=== PATIENT | female | born 2000 | race Caucasian/White ===

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

== ENCOUNTER 2020-05-10 09:25 | Outpatient (CLI) | payer OTHER ==
[~2020-05-10 09:25] MED LIST: FLONASE16 GM NASAL; MUCINEX DM ER1 EAC1 PO
== END 2020-05-10 09:34 | disposition home or self-care (01) ==
LOC: LAB 09:25
PROVIDERS: ATTEND Specialist
DX: D64.89 Other specified anemias (principal)

== ENCOUNTER 2020-07-11 20:19 | Emergency (ER) | payer OTHER ==
[~2020-07-11] VITALS: Ht 157.5 cm; Wt 81.6 kg
[2020-07-11] MEDS ORDERED: MAXFE (20:26)
== END 2020-07-12 00:12 | disposition home or self-care (01) ==
LOC: ER 20:19
DX: L03.115 Cellulitis of right lower limb (principal)

== ENCOUNTER 2020-12-03 10:38 | Outpatient (CLI) | payer OTHER ==
[~2020-12-03 10:38] MED LIST changes: +MAXFE
== END 2020-12-03 10:42 | disposition home or self-care (01) ==
LOC: LAB 10:38
PROVIDERS: ATTEND General Practice
DX: E03.8 Other specified hypothyroidism (principal)

== ENCOUNTER → 2021-05-16 09:52 | Outpatient (CLI) | payer OTHER | END | disposition home or self-care (01) | LOC: LAB 09:52 | PROVIDERS: ATTEND Internal Medicine Rheumatology | DX: M06.8A Other specified rheumatoid arthritis, other specified site (principal); M06.9 Rheumatoid arthritis, unspecified; M32.19 Other organ or system involvement in systemic lupus erythematosus; D68.61 Antiphospholipid syndrome; M35.00 Sjogren syndrome, unspecified ==

== ENCOUNTER 2021-08-16 10:54 | Outpatient (CLI) | payer OTHER | END 2021-08-16 11:45 | disposition home or self-care (01) | LOC: LAB 10:54 | PROVIDERS: ATTEND Obstetrics & Gynecology | DX: D64.89 Other specified anemias (principal); Z12.11 Encounter for screening for malignant neoplasm of colon; E03.8 Other specified hypothyroidism; N95.1 Menopausal and female climacteric states; I10 Essential (primary) hypertension; C51.9 Malignant neoplasm of vulva, unspecified; A64 Unspecified sexually transmitted disease; N39.0 Urinary tract infection, site not specified; R97.8 Other abnormal tumor markers; R79.89 Other specified abnormal findings of blood chemistry; E55.9 Vitamin D deficiency, unspecified; A60.9 Anogenital herpesviral infection, unspecified; M35.00 Sjogren syndrome, unspecified; D89.1 Cryoglobulinemia ==

== ENCOUNTER 2021-11-16 08:39 | Outpatient (CLI) | payer OTHER | END 2021-11-16 08:46 | disposition home or self-care (01) | LOC: LAB 08:39 | PROVIDERS: ATTEND Internal Medicine Rheumatology | DX: M32.19 Other organ or system involvement in systemic lupus erythematosus (principal) ==

== ENCOUNTER 2023-08-24 13:11 | Emergency (ER) | payer OTHER ==
[~2023-08-24] VITALS: Ht 157.5 cm; Wt 86.2 kg
[2023-08-24] MEDS ORDERED: SYNTHROID50 MCG PO (14:12)
[2023-08-24 15:45] LABS: HEMATOCRIT 35.8 % (36.0-45.00); HEMOGLOBIN 11.6 g/dL (12.0-15.00); MEAN CELL VOLUME 73.5 fL (80.00-100.00); MEAN CORPUSCULAR HEMOGLOBIN 23.9 pg (27.00-32.0); MEAN CORPUSCULAR HGB CONC 32.5 g/dl (32.0-36.0); PLATELET COUNT 342 K/uL (150-450); RED BLOOD COUNT 4.87 M/uL (4.00-6.00); RED CELL DISTRIBUTION WIDTH 15.2 % (11.5-14.5)
[2023-08-24 16:07] LABS: ALBUMIN 3.7 gm/dL (3.4-5.0); ALKALINE PHOSPHATASE 74 U/L (50-136); ALT/SGPT 38 U/L (12-78); AMYLASE 55 U/L (25-115); ANION GAP 9 (10.0-20.0); AST/SGOT 19 U/L (15-37); BILIRUBIN TOTAL 0.52 mg/dL (0.3-1.2); BLOOD UREA NITROGEN 16 mg/dL (7-18); BUN CREA RATIO 24 (7.0-25.0); CALCIUM 9.1 mg/dL (8.5-10.1); CARBON DIOXIDE 27 mEq/L (21-32); CHLORIDE 108 mmol/L (98-107); CREATININE SERUM 0.66 mg/dL (0.55-1.02); GFR 110.98; GLOBULINA 4.7 G/DL (2.4-3.5); GLUCOSE FASTING 98 mg/dL (65-100); LIPASE 33 U/L (13-75); OSMOLALITY SERUM 281 MOSM/KG (275-295); POTASSIUM 3.57 mEq/L (3.5-5.1); SODIUM 140 mmol/L (136-145); TOTAL PROTEIN 8.4 gm/dL (6.4-8.2)
[2023-08-24 16:59] LABS: HCG QUANTITATIVE < 1 mUI/mL (1-3)
== END 2023-08-24 17:17 | disposition home or self-care (01) ==
LOC: ER 13:12
PROVIDERS: General Practice
DX: K52.9 Noninfective gastroenteritis and colitis, unspecified (principal)

== ENCOUNTER 2023-11-25 18:09 | Emergency (ER) | payer OTHER ==
[~2023-11-25] VITALS: Ht 157.5 cm; Wt 89.8 kg
[~2023-11-25 18:09] MED LIST changes: +SYNTHROID50 MCG PO
[2023-11-25] MEDS ORDERED: SYNTHROID125 MCG PO (18:40)
[2023-11-25] MEDS ORDERED: PRENA1 TRUE CO1 EACH PO (18:41)
[2023-11-25 21:35] LABS: HEMATOCRIT 33.9 % (36.0-45.00); HEMOGLOBIN 11.1 g/dL (12.0-15.00); MEAN CORPUSCULAR HEMOGLOBIN 25.2 pg (27.00-32.0); MEAN CORPUSCULAR HGB CONC 32.7 g/dl (32.0-36.0); PLATELET COUNT 334 K/uL (150-450)
[2023-11-25 21:42] LABS: RED CELL DISTRIBUTION WIDTH 19.4 % (11.5-14.5)
[2023-11-25 21:58] LABS: PH,URINE 5.5 (5.0-8.0); URINE APPEARANCE Clear; URINE BILIRRUBIN Negative (NEGATIVE); URINE BLOOD Negative; URINE COLOR Yellow; URINE GLUCOSE Negative (NEGATIVE); URINE LEUKOCYTE Negative; URINE NITRATE Negative; URINE PROTEIN Negative (NEGATIVE)
[2023-11-25 22:01] LABS: URINE EPITHELIAL CELLS 22.9 uL (0.0-38.8); URINE RBC 6.3 uL (0.0-20.8); URINE WBC 4.3 uL (0.0-23.2)
[2023-11-25 22:08] LABS: CALCIUM 9.1 mg/dL (8.5-10.1); CREATININE SERUM 0.59 mg/dL (0.55-1.02); GFR 126.31; POTASSIUM 3.48 mEq/L (3.5-5.1)
== END 2023-11-26 00:20 | disposition home or self-care (01) ==
LOC: ER 18:10
PROVIDERS: General Practice
DX: M54.9 Dorsalgia, unspecified (principal); Z3A.10 10 weeks gestation of pregnancy

== ENCOUNTER 2023-12-16 13:14 | Outpatient (CLI) | payer OTHER ==
[~2023-12-16 13:14] MED LIST changes: +PRENA1 TRUE CO1 EACH PO; +SYNTHROID125 MCG PO
== END 2023-12-16 13:16 | disposition home or self-care (01) ==
LOC: PRENATAL 13:14
PROVIDERS: ATTEND Obstetrics & Gynecology Maternal & Fetal Medicine
DX: O36.80X0 Pregnancy with inconclusive fetal viability, not applicable or unspecified (principal); Z36.82 Encounter for antenatal screening for nuchal translucency; O99.280 Endocrine, nutritional and metabolic diseases complicating pregnancy, unspecified trimester; Z3A.13 13 weeks gestation of pregnancy

== ENCOUNTER 2024-01-12 18:23 | Emergency (ER) | payer OTHER ==
[~2024-01-12] VITALS: Ht 157.5 cm; Wt 89.8 kg
[2024-01-12] MEDS ORDERED: ONDANSETRON HCL 2 MG/ML VIAL IV STA (20:04)
[2024-01-12] MEDS ORDERED: 0.9 % SODIUM CHLORIDE 1,000 ML IV STA (20:04)
[2024-01-12] MEDS ORDERED: ACETAMINOPHEN 500 MG GEL..CAP PO ONE (20:15)
[2024-01-12 20:37] LABS: HEMATOCRIT 36.9 % (36.0-45.00); HEMOGLOBIN 12.4 g/dL (12.0-15.00); MEAN CELL VOLUME 81.2 fL (80.00-100.00); MEAN CORPUSCULAR HEMOGLOBIN 27.3 pg (27.00-32.0); MEAN CORPUSCULAR HGB CONC 33.6 g/dl (32.0-36.0); PLATELET COUNT 304 K/uL (150-450); RED BLOOD COUNT 4.55 M/uL (4.00-6.00); RED CELL DISTRIBUTION WIDTH 18.3 % (11.5-14.5)
[2024-01-12 20:52] LABS: PH,URINE 5.5 (5.0-8.0); URINE APPEARANCE Clear; URINE BACTERIA 5878.7 uL (0.0-1933); URINE BILIRRUBIN Negative (NEGATIVE); URINE BLOOD Negative; URINE COLOR Yellow; URINE EPITHELIAL CELLS 25.3 uL (0.0-38.8); URINE GLUCOSE Negative (NEGATIVE); URINE LEUKOCYTE Small; URINE NITRATE Negative; URINE PROTEIN Negative (NEGATIVE); URINE RBC 15.6 uL (0.0-20.8); URINE UROBILINOGEN 0.2 E.U./dl; URINE WBC 83.9 uL (0.0-23.2)
[2024-01-12 21:19] LABS: CALCIUM 9.5 mg/dL (8.5-10.1); CREATININE SERUM 0.43 mg/dL (0.55-1.02); GFR 181.96; POTASSIUM 3.67 mEq/L (3.5-5.1)
== END 2024-01-12 23:25 | disposition home or self-care (01) ==
LOC: ER 18:23
PROVIDERS: Emergency Medicine
DX: O23.42 Unspecified infection of urinary tract in pregnancy, second trimester (principal); N39.0 Urinary tract infection, site not specified; Z3A.17 17 weeks gestation of pregnancy; E03.9 Hypothyroidism, unspecified

== ENCOUNTER 2024-01-14 16:48 | Inpatient (IN) | payer OTHER ==
[~2024-01-14] VITALS: Ht 157.5 cm; Wt 89.8 kg
[2024-01-14] MEDS ORDERED: CHILDREN'S ASPI81 MG PO (18:15)
[2024-01-14] MEDS ORDERED: RINGERS SOLUTION,LACTATED 1,000 ML IV SCH (18:30)
[2024-01-14 18:37] LABS: HEMOGLOBIN 12.1 g/dL (12.0-15.00); MEAN CELL VOLUME 81.1 fL (80.00-100.00); MEAN CORPUSCULAR HEMOGLOBIN 27.3 pg (27.00-32.0); MEAN CORPUSCULAR HGB CONC 33.7 g/dl (32.0-36.0); PLATELET COUNT 304 K/uL (150-450); RED BLOOD COUNT 4.43 M/uL (4.00-6.00); RED CELL DISTRIBUTION WIDTH 17.5 % (11.5-14.5)
[2024-01-14 19:13] LABS: INR 0.98; PARTIAL THROMBOPLASTIN TIME 28.4 SECONDS (22.0-34.0); PROTHROMBIN TIME 10.3 SECONDS (9.0-11.5)
[2024-01-14 19:21] LABS: ALBUMIN 3.6 gm/dL (3.4-5.0); BILIRUBIN TOTAL 0.32 mg/dL (0.3-1.2); CALCIUM 9.9 mg/dL (8.5-10.1); CREATININE SERUM 0.5 mg/dL (0.55-1.02); GFR 152.89; GLOBULINA 4.5 G/DL (2.4-3.5); POTASSIUM 3.76 mEq/L (3.5-5.1); TOTAL PROTEIN 8.1 gm/dL (6.4-8.2); TSH 1.68 uIU/mL (0.358-3.74)
[2024-01-14] MEDS ORDERED: FAMOTIDINE/PF 20 MG/2 ML VIAL IV SCH (20:45)
[2024-01-14] MEDS ORDERED: METOCLOPRAMIDE HCL 5 MG/ML VIAL IV ONE (20:45)
[2024-01-14] MEDS ORDERED: DIPHENHYDRAMINE HCL 50 MG/ML VIAL 1ML IV ONE (20:45)
[2024-01-14] MEDS ORDERED: ONDANSETRON HCL 2 MG/ML VIAL IV SCH (21:00)
[2024-01-15] MEDS ORDERED: ACETAMINOPHEN 500 MG GEL..CAP PO PRN (17:30)
[2024-01-16 11:32] LABS: URINE PROT QUANT 24HR 11.6 MG/DL
[2024-01-16 11:45] LABS: URINE PROT QUANT 24 HR 205.9 MG/24HR (42-225)
[2024-01-16 13:16] LABS: ALBUMIN 3.3 gm/dL (3.4-5.0); BILIRUBIN TOTAL 0.31 mg/dL (0.3-1.2); CALCIUM 9.2 mg/dL (8.5-10.1); CREATININE SERUM 0.47 mg/dL (0.55-1.02); GFR 164.21; GLOBULINA 3.9 G/DL (2.4-3.5); POTASSIUM 3.46 mEq/L (3.5-5.1); TOTAL PROTEIN 7.2 gm/dL (6.4-8.2)
[2024-01-16] MEDS ORDERED: BUTALB/ACETAMINOPHEN/CAFFEINE 1 TAB TABLET PO PRN (20:00)
[2024-01-16 23:14] LABS: HEMOGLOBIN 11.1 g/dL (12.0-15.00); MEAN CORPUSCULAR HEMOGLOBIN 26.9 pg (27.00-32.0); MEAN CORPUSCULAR HGB CONC 33.6 g/dl (32.0-36.0); PLATELET COUNT 276 K/uL (150-450); RED BLOOD COUNT 4.13 M/uL (4.00-6.00); RED CELL DISTRIBUTION WIDTH 17.2 % (11.5-14.5)
[2024-01-17] MEDS ORDERED: METHYLPREDNISOLONE SOD SUCC 40 MG VIAL IV SCH (15:21)
[2024-01-18 11:11] LABS: hav igm Negative (Negative); hcv Non Reactive (Non Reactive); hep b c Negative (Negative)
[2024-01-20] MEDS ORDERED: BUTALB-ASPIRIN1 EACH PO ×2 (09:02)
[2024-01-20] MEDS ORDERED: MEDROLPACK PO ×2 (09:02)
== END 2024-01-20 13:07 | disposition home or self-care (01) | DRG 833 ==
LOC: OB/GYN 16:48 → LDR 16:48 → OB/GYN 01-15 11:01
PROVIDERS: Obstetrics & Gynecology; ADMIT Student in an Organized Health Care Education/Training Program; ATTEND Student in an Organized Health Care Education/Training Program
PROC: 4A1HXCZ Monitoring of Products of Conception, Cardiac Rate, External Approach (ICD-10-PCS; principal; 2024-01-14)
PROC: BY4CZZZ Ultrasonography of Second Trimester, Single Fetus (ICD-10-PCS; 2024-01-14)
PROC: BW40ZZZ Ultrasonography of Abdomen (ICD-10-PCS; 2024-01-16)
PROC: B030ZZZ Magnetic Resonance Imaging (MRI) of Brain (ICD-10-PCS; 2024-01-16)
DX: O26.892 Other specified pregnancy related conditions, second trimester (principal); Z3A.17 17 weeks gestation of pregnancy; G43.009 Migraine without aura, not intractable, without status migrainosus; R74.8 Abnormal levels of other serum enzymes; Z20.822 Contact with and (suspected) exposure to COVID-19
CPT/HCPCS: 70544

== ENCOUNTER 2024-01-24 22:57 | Emergency (ER) | payer OTHER ==
[~2024-01-24] VITALS: Ht 157.5 cm; Wt 90.3 kg
[~2024-01-24 22:57] MED LIST changes: +BUTALB-ASPIRIN1 EACH PO; +CHILDREN'S ASPI81 MG PO; +MEDROLPACK PO
[2024-01-25] MEDS ORDERED: METOCLOPRAMIDE HCL 5 MG/ML VIAL IM STA (00:42)
[2024-01-25] MEDS ORDERED: PROMETHAZINE HCL 50 MG/ML AMPUL IM STA (00:42)
[2024-01-25] MEDS ORDERED: 0.9 % SODIUM CHLORIDE 1,000 ML IV STA (00:44)
[2024-01-25] MEDS ORDERED: FAMOtidine 10 MG/ML (4ML VIAL) IV PUSH STA (00:45)
[2024-01-25] MEDS ORDERED: ONDANSETRON HCL 2 MG/ML VIAL IV STA (00:45)
[2024-01-25 01:12] LABS: HEMATOCRIT 35.9 % (36.0-45.00); HEMOGLOBIN 12.2 g/dL (12.0-15.00); MEAN CELL VOLUME 81.1 fL (80.00-100.00); MEAN CORPUSCULAR HEMOGLOBIN 27.5 pg (27.00-32.0); PLATELET COUNT 303 K/uL (150-450); RED BLOOD COUNT 4.43 M/uL (4.00-6.00); RED CELL DISTRIBUTION WIDTH 17.1 % (11.5-14.5)
[2024-01-25 01:40] LABS: ALBUMIN 3.3 gm/dL (3.4-5.0); BILIRUBIN TOTAL 0.2 mg/dL (0.3-1.2); CALCIUM 9.5 mg/dL (8.5-10.1); CREATININE SERUM 0.42 mg/dL (0.55-1.02); GFR 186.97; GLOBULINA 4.7 G/DL (2.4-3.5); POTASSIUM 3.53 mEq/L (3.5-5.1)
[2024-01-25 01:56] LABS: PH,URINE 5.5 (5.0-8.0); URINE APPEARANCE Clear; URINE BILIRRUBIN Negative (NEGATIVE); URINE BLOOD Negative; URINE COLOR Yellow; URINE GLUCOSE Negative (NEGATIVE); URINE LEUKOCYTE Negative; URINE NITRATE Negative; URINE PROTEIN 30 (NEGATIVE)
[2024-01-25 02:00] LABS: URINE BACTERIA 5270.2 uL (0.0-1933); URINE EPITHELIAL CELLS 27.9 uL (0.0-38.8); URINE RBC 8.6 uL (0.0-20.8); URINE WBC 60.1 uL (0.0-23.2)
[2024-01-25 03:03] LABS: URINE CRYSTALS MANY /HPF
== END 2024-01-25 04:12 | disposition home or self-care (01) ==
LOC: ER
DX: O21.0 Mild hyperemesis gravidarum (principal); Z3A.01 Less than 8 weeks gestation of pregnancy